=== PATIENT | female | born 1965 | race Caucasian/White ===

== ENCOUNTER 2016-10-25 17:10 | Emergency (ER) | payer OTHER ==
[~2016-10-25] VITALS: Ht 170.2 cm; Wt 98.6 kg
[2016-10-25 19:07] VITALS: BP 133/78
== END 2016-10-25 19:07 | disposition home or self-care (01) ==
LOC: EME 17:10
DX: S63.502A Unspecified sprain of left wrist, initial encounter (principal); W09.0XXA Fall on or from playground slide, initial encounter
CPT/HCPCS: 73110; 99281; 99283